=== PATIENT | female | born 1960 | race Caucasian/White ===

== ENCOUNTER 2020-12-11 17:27 | Emergency (ER) | payer OTHER ==
[2020-12-11] MEDS ORDERED: HYDROCODON-ACE1 EAC4 PO ×2 (19:42→19:58)
== END 2020-12-11 19:50 | disposition home or self-care (01) ==
LOC: ER1 17:27
DX: S52.501A Unspecified fracture of the lower end of right radius, initial encounter for closed fracture (principal); S52.611A Displaced fracture of right ulna styloid process, initial encounter for closed fracture; F17.200 Nicotine dependence, unspecified, uncomplicated; W19.XXXA Unspecified fall, initial encounter
CPT/HCPCS: 29125; 73110; 99283